=== PATIENT | male | born 1995 | race Caucasian/White ===

== ENCOUNTER 2021-11-12 11:53 | Emergency (ER) | payer OTHER ==
[~2021-11-12] VITALS: Ht 165.1 cm; Wt 78.0 kg
[2021-11-12] MEDS ORDERED: SODIUM CHLORIDE 0.9% 1,000 ML IV ONE (12:00)
[2021-11-12] MEDS ORDERED: TETANUS, DIPHTHERIA, PERTUSSIS VAC/PF 0.5ML (>10YR OLD) IM ONE (12:15)
[2021-11-12] MEDS ORDERED: BACITRACIN ZINC OINT UDPKT TOP ONE (12:15)
[2021-11-12] MEDS ORDERED: LIDOCAINE HCL/EPINEPHRINE 1%-EPI 1:100,000 20 ML VIAL INFIL ONE (12:15)
[2021-11-12 16:47] LABS: CHLORIDE 113 mEq/L (98-107)
[2021-11-12 16:50] LABS: HEMATOCRIT. 46.5 % (42.0-52.0); HEMOGLOBIN. 15.8 g/dL (14.0-18.0); MEAN CORPUSCULAR VOLUME 88.1 fL (80.0-94.0); MEAN PLATELET VOLUME 8.4 fl (7.4-10.4); PLATELET 245 x1000/uL (130-400); RED BLOOD CELL COUNT 5.28 mill/uL (4.7-6.1); RED CELL DISTRIBUTION WIDTH 13.2 % (11.6-14.6)
[2021-11-12 18:45] LABS: PLATELET ESTIMATE NORMAL
[2021-11-12 20:00] LABS: BASOPHILS % 0.2 % (0.0-2.0); HEMATOCRIT. 46.4 % (42.0-52.0); HEMOGLOBIN. 15.7 g/dL (14.0-18.0); LYMPHOCYTES % 13.5 % (20.0-50.0); MEAN CORPUSCULAR HEMOGLOBIN 29.6 pg (28.0-32.0); MEAN CORPUSCULAR VOLUME 87.4 fL (80.0-94.0); MEAN PLATELET VOLUME 8.5 fl (7.4-10.4); NEUTROPHILS % 81.3 % (40.0-76.0); PLATELET 224 x1000/uL (130-400); RED BLOOD CELL COUNT 5.31 mill/uL (4.7-6.1); RED CELL DISTRIBUTION WIDTH 13.5 % (11.6-14.6)
[2021-11-12 21:01] VITALS: BP 120/85
== END 2021-11-12 21:08 | disposition home or self-care (01) ==
LOC: ER 11:53
DX: R55 Syncope and collapse (principal); S01.112A Laceration without foreign body of left eyelid and periocular area, initial encounter; W18.39XA Other fall on same level, initial encounter; Y93.89 Activity, other specified; Y92.89 Other specified places as the place of occurrence of the external cause
CPT/HCPCS: 12013; 36415; 71045; 80053; 82962; 85025; 90471; 90715; 93005; 96360; 96361; 99285; J3490; J7030